=== PATIENT | male | born 1985 | race Caucasian/White ===

== ENCOUNTER 2018-01-29 18:54 | Emergency (ER) | payer BC ==
[~2018-01-29] VITALS: Ht 177.8 cm; Wt 83.9 kg
[2018-01-29 18:59] VITALS: Ht 177.8 cm; Wt 83.9 kg
[2018-01-29 21:30] VITALS: BP 146/90
== END 2018-01-29 21:30 | disposition home or self-care (01) ==
LOC: ED 18:54
DX: S86.812A Strain of other muscle(s) and tendon(s) at lower leg level, left leg, initial encounter (principal); X58.XXXA Exposure to other specified factors, initial encounter; Y93.89 Activity, other specified; Y92.89 Other specified places as the place of occurrence of the external cause; Y99.8 Other external cause status